=== PATIENT | female | born 1955 | race Caucasian/White ===

== ENCOUNTER 2022-12-03 10:11 | Inpatient (IN) | payer OTHER, MEDICARE ==
[~2022-12-03] VITALS: Ht 149.9 cm; Wt 49.9 kg
[2022-12-03] MEDS ORDERED: IV NORMAL SALINE 500 ML BAG IV ONE (10:30)
[2022-12-03] MEDS ORDERED: BENA10TA74 PO (10:34)
[2022-12-03] MEDS ORDERED: ASPI-612 PO (10:34)
[2022-12-03] MEDS ORDERED: CALC-343 PO (10:34)
[2022-12-03] MEDS ORDERED: CYAN-51 PO (10:34)
[2022-12-03] MEDS ORDERED: LENA10CA PO (10:34)
[2022-12-03 10:55] LABS: HEMATOCRIT 33.4 % (31.2-41.9); MEAN CORPUSCULAR HEMOGLOBIN 34.6 uug (24.7-32.8); MEAN CORPUSCULAR VOLUME 103.5 fL (75.5-95.3); PLATELET COUNT (AUTO) 112 K/uL (179-408)
[2022-12-03 10:59] LABS: CARBON DIOXIDE 28 mmol/L (21-32); CHLORIDE 106 mmol/L (98-107); CREATININE 0.8 mg/dL (0.6-1.3); GLUCOSE 104 mg/dL (74-106); POTASSIUM 3.3 mmol/L (3.5-5.1); UREA NITROGEN, BLOOD 17 mg/dL (7-18)
[2022-12-03 11:08] LABS: ALANINE AMINOTRANSFERASE 36 U/L (14-59); ALKALINE PHOSPHATASE 85 U/L (50-136); ASPARTATE AMINOTRANSFERASE 18 U/L (15-37); BILIRUBIN,DIRECT 0.2 mg/dL (0.0-0.2); BILIRUBIN,TOTAL 0.5 mg/dL (0.2-1.0); TOTAL PROTEIN, SERUM 6.1 g/dL (6.4-8.2)
[2022-12-03 11:09] LABS: *BILIRUBIN,URIN NEGATIVE (NEGATIVE); *BLOOD, URINE 2+ (NEGATIVE); *CLARITY,URINE CLEAR (CLEAR); *COLOR,URINE YELLOW (YELLOW); *KETONES,URINE NEGATIVE (NEGATIVE); *UROBILINOGEN,URINE 0.2 E.U./dl (NORMAL); LEUKOCYTE ESTERASE ,URINE TRACE (NEGATIVE); NITRITE, URINE NEGATIVE (NEGATIVE); UGLUCOSE NEGATIVE (NEGATIVE)
[2022-12-03] MEDS ORDERED: ONDANSETRON 4 MG/2 ML VIAL ONE (11:46)
[2022-12-03] MEDS ORDERED: SWABABLE VALVE TRANSFER SET EA MC ONE (12:09)
[2022-12-03] MEDS ORDERED: IV NORMAL SALINE 250 ML IV ONE (12:09)
[2022-12-03] MEDS ORDERED: IOHEXOL 300MG/ML 100 ML INFUS..BTL ONE (12:09)
[2022-12-03] MEDS ORDERED: IOHEXOL 350 100 ML INFUS..BTL ONE (12:11)
[2022-12-03] MEDS ORDERED: ONDANSETRON 4 MG/2 ML VIAL IV ONE (12:45)
[2022-12-03] MEDS ORDERED: POTASSIUM CHLORIDE 20 MEQ POWDER PACKET ONE (12:56)
[2022-12-03] MEDS ORDERED: POTASSIUM CHLORIDE 20 MEQ POWDER PACKET GT ONE (13:00)
[2022-12-03] MEDS ORDERED: MAGNESIUM SULFATE/D5W 100 ML IV SCH (13:00)
--- NOTE | 2022-12-03 13:00 | NUR ---
Pt back from CT. Saline lock disconnected from catheter while there, no active bleeding. New lock placed on and secured. Line is patent.
--- NOTE | 2022-12-03 14:35 | NUR ---
started 2nd bag of Mg.
[2022-12-03] MEDS ORDERED: CEFTRIAXONE 1 G in IV DEXTROSE 5% 50 ML IV SCH (14:45)
[2022-12-03] MEDS ORDERED: METRONIDAZOLE 500 MG/NS 100ML 500 MG in PREMIXED 1 EACH IV SCH (14:45)
--- NOTE | 2022-12-03 15:16 | NUR ---
Paged [facility] for Admit, awaiting Dr Savage to call back.
[2022-12-03] MEDS ORDERED: CEFTRIAXONE /D5W 50ML IVPB **ER PYXIS IV ONE (15:38)
[2022-12-03] MEDS ORDERED: METRONIDAZOLE 500 MG/NS 100ML 100 ML IV ONE (15:38)
--- NOTE | 2022-12-03 16:25 | NUR ---
Started rocephin infusion, [facility] would not accept administration.
--- NOTE | 2022-12-03 17:11 | NUR ---
67 year old female received from er via gurney to room 325 for chest pain .pt kis axox4 .call light with in reach vs are stable md notified for admission orders
[2022-12-03 17:14] VITALS: BP 113/58
[2022-12-03] MEDS ORDERED: MAGNESIUM HYDROXIDE 30 ML LIQUID UDC PO PRN (17:45)
[2022-12-03] MEDS ORDERED: TEMAZEPAM 7.5 MG CAPSULE PO PRN (17:45)
[2022-12-03] MEDS ORDERED: ONDANSETRON 4 MG/2 ML VIAL IV PRN (17:45)
[2022-12-03] MEDS ORDERED: ACETAMINOPHEN 325 MG TABLET PO PRN (17:45)
--- NOTE | 2022-12-03 17:58 | NUR ---
Ended Rocephin administration. [facility] would not allow reassesment entry.
[2022-12-03] MEDS ORDERED: ENOXAPARIN SODIUM 40 MG/0.4 ML DISP.SYRIN SQ ONE (18:00)
[2022-12-03 19:24] LABS: BACTERIA,URINE RARE /HPF (NONE SEEN); RBC,URINE 20-50 /HPF (0-3)
[2022-12-03 19:25] LABS: SQUAMOUS EPITHELIAL CELL,UR FEW /HPF (NONE SEEN)
[2022-12-03 20:09] VITALS: BP 99/62
[2022-12-03] MEDS ORDERED: IV DEXTROSE 5%-0.9%NS+20MeqKCL 1,000 ML IV ONE (21:54)
[2022-12-03] MEDS ORDERED: PIPERACILLIN/TAZOBACTAM/D5W 50 ML IV ONE (21:55)
[2022-12-03] MEDS ORDERED: PIPERACILLIN SODIUM/TAZOBACTAM 3.375 G in IV DEXTROSE 5% 50 ML IV SCH (22:00)
[2022-12-03] MEDS: POTASSIUM CHLORIDE 20 MEQ in IV D5/ 0.9% NACL 1,000 ML IV PRN (22:00)
[2022-12-03] MEDS: PIPERACILLIN SODIUM/TAZOBACTAM 3.375 G in IV DEXTROSE 5% 50 ML IV SCH (22:08)
[2022-12-03] MEDS ORDERED: PIPERACILLIN SODIUM/TAZO 3.375 GM VIAL ONE (23:37)
[2022-12-04 04:00] VITALS: BP 97/56
[2022-12-04] MEDS: PIPERACILLIN SODIUM/TAZOBACTAM 3.375 G in IV DEXTROSE 5% 50 ML IV SCH (05:04)
[2022-12-04 06:49] LABS: THYROID STIMULATING HORMONE 1.01 mIU/mL (0.358-3.740)
[2022-12-04 06:55] LABS: BILIRUBIN,TOTAL 0.6 mg/dL (0.2-1.0); CREATININE 0.9 mg/dL (0.6-1.3); MAGNESIUM 2.4 mg/dL (1.8-2.4); PHOSPHOROUS 3.8 mg/dL (2.5-4.9); POTASSIUM 3.9 mmol/L (3.5-5.1); TOTAL PROTEIN, SERUM 5.4 g/dL (6.4-8.2)
[2022-12-04] MEDS ORDERED: PANTOPRAZOLE SODIUM 40 MG TABLET.DR PO SCH (07:00)
[2022-12-04 07:07] LABS: HEMATOCRIT 26.1 % (31.2-41.9); MEAN CORPUSCULAR HEMOGLOBIN 34.8 uug (24.7-32.8); MEAN CORPUSCULAR VOLUME 103.2 fL (75.5-95.3); PLATELET COUNT (AUTO) 84 K/uL (179-408)
[2022-12-04 07:50] LABS: EOSINOPHILS % (MANUAL) 6 % (0-8); LYMPHOCYTES % (MANUAL) 29 % (20-40); MONOCYTES % (MANUAL) 8 % (2-10); NEUTROPHILS % (MANUAL) 57 % (42-75)
--- NOTE | 2022-12-04 08:00 | NUR ---
awake, resting in bed, oriented x 4, denies of dizziness, no abdominal cramps, states no diarrhea, tele SR, explained plan fo care- verbalized understanding, assisted to BR- voided, tolerated well, no dizziness, safety measures maintained, call light within reach
[2022-12-04] MEDS: CYANOCOBALAMIN 1,000 MCG TABLET PO SCH (08:17)
[2022-12-04] MEDS: CALCIUM CARBONATE 500 MG TAB.CHEW PO SCH (08:17)
[2022-12-04] MEDS ORDERED: ASPIRIN 325 MG TABLET PO SCH (09:00)
[2022-12-04 10:59] VITALS: BP 97/65
[2022-12-04 11:04] LABS: HEMATOCRIT 27.9 % (31.2-41.9)
--- NOTE | 2022-12-04 12:00 | NUR ---
still on clear liquids, instructed of the stool specimen needed.
[2022-12-04 12:24] VITALS: BP 103/55
[2022-12-04 12:26] VITALS: BP_SYST 112; BP_SYST 120; BP_DIAS 57; BP_DIAS 65
[2022-12-04] MEDS: POTASSIUM CHLORIDE 20 MEQ in IV D5/ 0.9% NACL 1,000 ML IV PRN (12:58)
[2022-12-04] MEDS: PIPERACILLIN SODIUM/TAZOBACTAM 3.375 G in IV DEXTROSE 5% 100 ML IV SCH ×2 (14:08→21:21)
--- NOTE | 2022-12-04 17:30 | NUR ---
seen by Dr Gallardo and cleared for discharge from cardiac standpoint, will start on soft diet, no stool collected this shift, no bleeding noted, all needs attended and met, call light within reach
[2022-12-04 20:00] VITALS: BP 112/67
[2022-12-04] MEDS ORDERED: ENOXAPARIN SODIUM 40 MG/0.4 ML DISP.SYRIN SQ SCH (21:00)
[2022-12-04] MEDS: PANTOPRAZOLE SODIUM 40 MG VIAL IV SCH (21:20)
[2022-12-05] MEDS: PIPERACILLIN SODIUM/TAZOBACTAM 3.375 G in IV DEXTROSE 5% 100 ML IV SCH (05:22)
[2022-12-05 05:28] VITALS: BP 113/53
[2022-12-05 06:55] LABS: HEMATOCRIT 23.4 % (31.2-41.9); MEAN CORPUSCULAR HEMOGLOBIN 35.8 uug (24.7-32.8); MEAN CORPUSCULAR VOLUME 102.3 fL (75.5-95.3); PLATELET COUNT (AUTO) 75 K/uL (179-408)
--- NOTE | 2022-12-05 07:43 | NUR ---
End of Shift Report: Pt is A&ox4 and is coordinated. Pt on Rm Air. 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 Safety measures in place.
[2022-12-05] MEDS ORDERED: ASPIRIN 325 MG TABLET PO SCH (09:00)
[2022-12-05] MEDS: CYANOCOBALAMIN 1,000 MCG TABLET PO SCH (10:04)
[2022-12-05] MEDS: PANTOPRAZOLE SODIUM 40 MG VIAL IV SCH (10:05)
[2022-12-05] MEDS: CALCIUM CARBONATE 500 MG TAB.CHEW PO SCH (10:05)
[2022-12-05 10:29] LABS: HEMATOCRIT 27.8 % (31.2-41.9)
[2022-12-05 10:34] LABS: *OCCULT BLOOD STOOL NEGATIVE (NEGATIVE)
[2022-12-05] MEDS ORDERED: METR500T PO (10:56)
[2022-12-05] MEDS ORDERED: CIPR-262 PO (10:56)
[2022-12-05] MEDS ORDERED: ACID1TAB4 PO (10:56)
[2022-12-05 11:48] VITALS: BP 109/80
[2022-12-05] MEDS ORDERED: METRONIDAZOLE 500 MG/NS 100ML 500 MG in PREMIXED 1 EACH IV SCH (14:00)
--- NOTE | 2022-12-05 14:00 | NUR ---
Pt alert and oriented x4, has no pain or distres. Ate her meals.
[2022-12-05] MEDS ORDERED: CEFTRIAXONE 1 G in IV DEXTROSE 5% 50 ML IV SCH (15:00)
--- NOTE | 2022-12-05 15:00 | NUR ---
Pt is stable and is getting discharged, being picked up by her niece
[2022-12-05] MEDS ORDERED: ENOXAPARIN SODIUM 40 MG/0.4 ML DISP.SYRIN SQ SCH (21:00)
== END 2022-12-05 15:00 | disposition home or self-care (01) | DRG 372 ==
LOC: ER 10:11 → TELE3 16:38 → MEDSURG3 12-04 18:52
PROVIDERS: ADMIT Internal Medicine; ATTEND Nurse Practitioner Acute Care
DX: A04.9 Bacterial intestinal infection, unspecified (principal); C90.01 Multiple myeloma in remission; E44.0 Moderate protein-calorie malnutrition; E86.0 Dehydration; D63.8 Anemia in other chronic diseases classified elsewhere; D69.6 Thrombocytopenia, unspecified; D75.89 Other specified diseases of blood and blood-forming organs; E87.6 Hypokalemia; E88.09 Other disorders of plasma-protein metabolism, not elsewhere classified; I10 Essential (primary) hypertension; Z20.822 Contact with and (suspected) exposure to COVID-19; Z79.899 Other long term (current) drug therapy; Z68.22 Body mass index [BMI] 22.0-22.9, adult; I95.9 Hypotension, unspecified; J98.4 Other disorders of lung
CPT/HCPCS: 36415; 70030-TC; 70450; 71045; 83735; 84100; 84443; 84484; 85018; 85025; 85730; 93005; 93307; 93880; A4663; C9113; G0378; J0696; J1650; J2405; J2543; J3475; J3480; J3490; J7040; J7042; Q9967